=== PATIENT | male | born 1955 ===

== ENCOUNTER 2020-01-26 02:41 | Emergency (ER) | payer SELFPAY ==
--- NOTE | 2020-01-26 05:10 | XRay Report ---
CHEST 2 VIEWS INDICATION: cough productive. COMPARISON: None FINDINGS: Support devices: None. Heart: Within normal limits. Lungs: Prominent bronchovascular markings left base Pleura: No significant pleural effusion. No pneumothorax. Additional findings: None. IMPRESSION: 1. Mild inflammatory process left lower lobe Signer Name: Vu Chandra MD Signed: 01/26/2020 5:06 AM Workstation Name: [id number]
[2020-01-26] MEDS ORDERED: dexAMETHasone 20 MG/5 ML VIAL IM ONE (05:25)
[2020-01-26] MEDS ORDERED: IPRATROPIUM/ALBUTEROL SULFATE 3 ML AMPUL.NEB IH ONE (05:25)
--- NOTE | 2020-01-26 05:50 | Emergency Department Report ---
ED General Adult HPI - General Chief complaint: Upper Respiratory Infection Stated complaint: COUGH CONGESTION SOB Time Seen by Provider: 01/26/20 04:33 Source: patient Mode of arrival: Ambulatory Limitations: No Limitations - History of Present Illness Initial comments: Mr. Oro is a 64 y/o male with hx of bronchitis who presents for cough productive clear, and wheezing x 2 weeks. There is no fever , chills or malaise. Symptoms are exacerbated by environmental exposure, pt denies cp, no n/v , no diaphoresis, no dizziness, no light headedness , no activity intolerance, state he does not have inhaler at this time and no primary care doctor. pt denies suspicious travel no sick contacts. He rates his symptoms as 4/10. Onset/Timin -: week(s) Location: head, chest ("cold") Radiation: non-radiation Severity scale (0 -10): 4 Quality: other (cough wheezing ) Consistency: intermittent Improves with: none Worsens with: other (environmental exposure ) Associated Symptoms: cough, shortness of breath, other (wheezing ). denies: fever/chills Treatments Prior to Arrival: none - Related Data Previous Rx's Medication Instructions Recorded Last Taken Type Acetaminophen [Acetaminophen TAB] 1,000 mg PO Q6HR PRN #30 tablet 01/26/20 Unknown Rx Albuterol INH(or & Nicu Only) 2 puff IH QID PRN #8.5 gram 01/26/20 Unknown Rx [ProAir HFA Inhaler] Azithromycin [Zithromax Z-CHENTE] 250 mg PO DAILY #6 tab 01/26/20 Unknown Rx predniSONE [Deltasone] 40 mg PO QDAY #6 tab 01/26/20 Unknown Rx Allergies Allergy/AdvReac Type Severity Reaction Status Date / Time No Known Allergies Allergy Unverified 01/26/20 02:51 ED Review of Systems ROS: Stated complaint: COUGH CONGESTION SOB Other details as noted in HPI Constitutional: denies: chills, fever Eyes: denies: eye pain, eye discharge, vision change ENT: congestion Respiratory: cough, shortness of breath, wheezing Cardiovascular: as per HPI. denies: chest pain Endocrine: no symptoms reported Gastrointestinal: denies: abdominal pain, nausea, vomiting, diarrhea Genitourinary: denies: urgency, dysuria Musculoskeletal: denies: back pain, joint swelling, arthralgia Skin: denies: rash, lesions Neurological: denies: headache, weakness, paresthesias Psychiatric: denies: anxiety, depression Hematological/Lymphatic: denies: easy bleeding, easy bruising ED Past Medical Hx - Past Medical History Previous Medical History?: No - Surgical History Past Surgical History?: No - Social History Smoking Status: Never Smoker Substance Use Type: None - Medications Home Medications: Home Medications Medication Instructions Recorded Confirmed Last Taken Type Acetaminophen [Acetaminophen TAB] 1,000 mg PO Q6HR PRN #30 tablet 01/26/20 Unknown Rx Albuterol INH(or & Nicu Only) 2 puff IH QID PRN #8.5 gram 01/26/20 Unknown Rx [ProAir HFA Inhaler] Azithromycin [Zithromax Z-CHENTE] 250 mg PO DAILY #6 tab 01/26/20 Unknown Rx predniSONE [Deltasone] 40 mg PO QDAY #6 tab 01/26/20 Unknown Rx ED Physical Exam - General Limitations: No Limitations General appearance: alert, in no apparent distress - Head Head exam: Present: atraumatic, normocephalic - Eye Eye exam: Present: normal appearance, PERRL, EOMI Pupils: Present: normal accommodation - ENT ENT exam: Present: normal orophraynx, mucous membranes moist, TM's normal bilaterally, normal external ear exam - Neck Neck exam: Present: normal inspection, full ROM. Absent: tenderness, lymphadenopathy, thyromegaly - Respiratory Respiratory exam: Present: wheezes. Absent: respiratory distress, rales, rhonchi, stridor, chest wall tenderness, accessory muscle use - Expanded Respiratory Exam Expanded Location: Wheezes: Right, Left, Upper - Cardiovascular Cardiovascular Exam: Present: regular rate, normal rhythm, normal heart sounds. Absent: systolic murmur, diastolic murmur, rubs, gallop - GI/Abdominal GI/Abdominal exam: Present: soft, normal bowel sounds. Absent: distended, tenderness, bruit, hernia - Rectal Rectal exam: Present: deferred - Extremities Exam Extremities exam: Present: normal inspection - Back Exam Back exam: Present: normal inspection, full ROM. Absent: tenderness, CVA tenderness (R), CVA tenderness (L) - Neurological Exam Neurological exam: Present: alert, oriented X3, CN II-XII intact, normal gait, reflexes normal - Psychiatric Psychiatric exam: Present: normal affect, normal mood - Skin Skin exam: Present: warm, dry, intact, normal color. Absent: rash ED Medical Decision Making - Radiology Data Radiology results: report reviewed, image reviewed Findings Reporting MD: Vu Chandra Dictation Time: January 26, 2020 04:06 Addiction Counselor: Not available Slip Seat Coverer Date: CHEST 2 VIEWS INDICATION: cough productive. COMPARISON: None FINDINGS: Support devices: None. Heart: Within normal limits. Lungs: Prominent bronchovascular markings left base Pleura: No significant pleural effusion. No pneumothorax. Additional findings: None. IMPRESSION: 1. Mild inflammatory process left lower lobe Signer Name: Vu Chandra MD Signed: 01/26/2020 4:06 AM Workstation Name: [id number] - Medical Decision Making Patient advises all symptoms are improving. Patient is amatory in ED without increased shortness of breath or wheezing. Plan DC to home with prescriptions , albuterol inhaler as needed prednisone, azithromycin, Tessalon Perles, and Tylenol as needed pain or fever. Patient will continue to hydrate as discussed. Follow-up with primary care doctor in 2 to 3 days. Return to ED should symptoms worsen. Patient verbalized agreement and understanding with discharge plan. Patient will be DC'd to home in stable condition at this time. Critical care attestation.: If time is entered above; I have spent that time in minutes in the direct care of this critically ill patient, excluding procedure time. ED Disposition Clinical Impression: Bronchitis Disposition: DC-01 TO HOME OR SELFCARE Is pt being admited?: No Does the pt Need Aspirin: No Condition: Stable Instructions: Chronic Bronchitis (ED) Prescriptions: Acetaminophen [Acetaminophen TAB] 1,000 mg PO Q6HR PRN #30 tablet PRN Reason: fever pain predniSONE [Deltasone] 40 mg PO QDAY #6 tab Albuterol INH(or & Nicu Only) [ProAir HFA Inhaler] 2 puff IH QID PRN #8.5 gram PRN Reason: Shortness Of Breath Azithromycin [Zithromax Z-CHENTE] 250 mg PO DAILY #6 tab Referrals: ZEB STOVER MD [Primary Care Provider] - 3-5 Days Forms: Work/School Release Form(ED) Time of Disposition: 06:59
[2020-01-26 07:25] VITALS: BP 130/70
== END 2020-01-26 07:24 | disposition home or self-care (01) ==
LOC: ED 02:41
DX: J40 Bronchitis, not specified as acute or chronic (principal)
CPT/HCPCS: 71046; 96372; 99283; J1100